=== PATIENT | female | born 1990 | race Caucasian/White ===

== ENCOUNTER 2016-12-29 13:42 | Emergency (ER) | payer BC ==
[2016-12-29 14:09] LABS: Appearance,Urine Clear (Clear); Bilirubin,Urine Negative (Negative); Glucose,Urine (UA) Negative (Negative); Ketones,Urine Negative (Negative); Leukocyte Esterase,Urine Negative (Negative); Nitrite,Urine Negative (Negative); Protein,Urine Negative (Negative); Specific Gravity,Urine 1.004 (1.001-1.035); UA Billing (MACRO vs. MICRO) CHEM; Urobilinogen,Urine <2.0 mg/dL (<2.0)
[2016-12-29] MEDS ORDERED: SODIUM CHLORIDE 0.9% 1,000 ML IV ONE (14:15)
[2016-12-29] MEDS ORDERED: ONDANSETRON 4 MG/2 ML VIAL IVP STA (14:15)
[2016-12-29] MEDS ORDERED: KETOROLAC 30 MG/ML 1 ML VIAL IVP STA (14:15)
--- NOTE | 2016-12-29 14:18 | ED ---
Abdominal Pain HPI - General Chief Complaint: Abdominal Pain Stated Complaint: Abd Pain Time Seen by Provider: 12/29/16 13:55 Source: patient, RN notes reviewed Mode of arrival: ambulatory Limitations: no limitations - History of Present Illness Initial Comments: Patient is a 26-year-old female presents to the emergency room for evaluation of abdominal pain. Patient does have a history of chronic abdominal pain for the past few years. Patient states usually she has about 6-8 bowel movements per day that are sometimes loose. Patient states over the past 2 days she has not been able to make a bowel movement. Patient states for the past 2 weeks she has been having worsening abdominal pain. Patient states a few days ago she was having bright red blood in her stools. Patient denies pain or burning during urination, trouble urinating or blood in urine. Patient states the pain makes her nauseous. Patient states she woke up today with worsening right lower quadrant and left lower quadrant pain and thought she should be evaluated. Patient denies any current blood in her stools. Patient denies chest pain or shortness of breath. Patient denies headache or dizziness. Patient denies fevers or chills. Patient denies history of abdominal surgeries. - Related Data Home Medications Medication Instructions Recorded Confirmed Dextroamphetamine/Amphetamine 20 mg PO BID 12/29/16 12/29/16 [Adderall] Triamcinolone Acetonide [Nasacort] 1 spray EA NOSTRIL BID PRN 12/29/16 12/29/16 Previous Rx's Medication Instructions Recorded Dicyclomine [Bentyl] 10 mg PO TID PRN #12 capsule 12/29/16 Allergies Allergy/AdvReac Type Severity Reaction Status Date / Time No Known Allergies Allergy Verified 12/29/16 13:49 Review of Systems ROS Statement: Those systems with pertinent positive or pertinent negative responses have been documented in the HPI. ROS Other: All systems not noted in ROS Statement are negative. Past Medical History Past Medical History: No Reported History History of Any Multi-Drug Resistant Organisms: None Reported Past Surgical History: No Surgical Hx Reported Past Psychological History: ADD/ADHD Smoking Status: Current every day smoker Past Alcohol Use History: Occasional Past Drug Use History: None Reported General Exam - General Exam Comments Initial Comments: Sitting in exam room, no acute distress. Limitations: no limitations General appearance: alert, in no apparent distress Head exam: Present: atraumatic, normocephalic, normal inspection Eye exam: Present: normal appearance ENT exam: Present: normal exam Neck exam: Present: normal inspection Respiratory exam: Present: normal lung sounds bilaterally. Absent: respiratory distress Cardiovascular Exam: Present: regular rate, normal rhythm, normal heart sounds GI/Abdominal exam: Present: soft, tenderness (RLQ/LLQ), normal bowel sounds. Absent: distended, guarding, rebound, rigid Rectal exam: Present: normal inspection, normal rectal tone, heme (-) stool Extremities exam: Present: normal inspection Back exam: Present: normal inspection Neurological exam: Present: alert, oriented X3, CN II-XII intact, normal gait Psychiatric exam: Present: normal affect, normal mood Skin exam: Present: warm, dry, intact, normal color. Absent: rash Course Vital Signs 12/29/16 13:46 Temperature 97.4 F L Pulse Rate 92 Respiratory 20 Rate Blood Pressure 141/76 O2 Sat by Pulse 99 Oximetry Medical Decision Making - Medical Decision Making Patient is a 26-year-old female presents to the emergency room for evaluation of abdominal pain. Patient states she usually has 6-8 bowel movements per day and has had decreased bowel movements over the past 2 days. Patient's symptoms consistent with possible IBS. Patient has never been diagnosed with IBS. WBC slightly elevated. Other labs show no concerning findings. Patient states she is feeling better after medications given. Patient was sent home with Antonio and advised to follow-up with GI specialist for further evaluation. Patient states she understands everything that was discussed with her. Return parameters discussed. Case discussed with Dr. Pino. - Lab Data Result diagrams: 12/29/16 14:25 12/29/16 14:25 Lab Results 12/29/16 12/29/16 12/29/16 Range/Units 13:55 13:55 14:15 WBC (3.8-10.6) k/uL RBC (3.80-5.40) m/uL Hgb (11.4-16.0) gm/dL Hct (34.0-46.0) % MCV (80.0-100.0) fL MCH (25.0-35.0) pg MCHC (31.0-37.0) g/dL RDW (11.5-15.5) % Plt Count (150-450) k/uL Neutrophils % % Lymphocytes % % Monocytes % % Eosinophils % % Basophils % % Neutrophils # (1.3-7.7) k/uL Lymphocytes # (1.0-4.8) k/uL Monocytes # (0-1.0) k/uL Eosinophils # (0-0.7) k/uL Basophils # (0-0.2) k/uL Sodium (137-145) mmol/L Potassium (3.5-5.1) mmol/L Chloride (98-107) mmol/L Carbon Dioxide (22-30) mmol/L Anion Gap mmol/L BUN (7-17) mg/dL Creatinine (0.52-1.04) mg/dL Est GFR (MDRD) Af Amer (>60 ml/min/1.73 sqM) Est GFR (MDRD) Non-Af (>60 ml/min/1.73 sqM) Glucose (74-99) mg/dL Calcium (8.4-10.2) mg/dL Total Bilirubin (0.2-1.3) mg/dL AST (14-36) U/L ALT (9-52) U/L Alkaline Phosphatase (38-126) U/L Total Protein (6.3-8.2) g/dL Albumin (3.5-5.0) g/dL Amylase (30-110) U/L Lipase (23-300) U/L Urine Color Light Yellow Urine Appearance Clear (Clear) Urine pH 7.0 (5.0-8.0) Ur Specific [place] 1.004 (1.001-1.035) Urine Protein Negative (Negative) Urine Glucose (UA) Negative (Negative) Urine Ketones Negative (Negative) Urine Blood Negative (Negative) Urine Nitrite Negative (Negative) Urine Bilirubin Negative (Negative) Urine Urobilinogen <2.0 (<2.0) mg/dL Ur Leukocyte Esterase Negative (Negative) Urine HCG, Qual Not Detected (Not Detectd) Stool Occult Blood Negative (Negative) 12/29/16 12/29/16 Range/Units 14:25 14:25 WBC 12.6 H (3.8-10.6) k/uL RBC 4.71 (3.80-5.40) m/uL Hgb 15.3 (11.4-16.0) gm/dL Hct 43.5 (34.0-46.0) % MCV 92.4 (80.0-100.0) fL MCH 32.5 (25.0-35.0) pg MCHC 35.2 (31.0-37.0) g/dL RDW 12.3 (11.5-15.5) % Plt Count 286 (150-450) k/uL Neutrophils % 70 % Lymphocytes % 18 % Monocytes % 5 % Eosinophils % 5 % Basophils % 1 % Neutrophils # 8.8 H (1.3-7.7) k/uL Lymphocytes # 2.2 (1.0-4.8) k/uL Monocytes # 0.6 (0-1.0) k/uL Eosinophils # 0.6 (0-0.7) k/uL Basophils # 0.1 (0-0.2) k/uL Sodium 141 (137-145) mmol/L Potassium 4.8 (3.5-5.1) mmol/L Chloride 103 (98-107) mmol/L Carbon Dioxide 27 (22-30) mmol/L Anion Gap 11 mmol/L BUN 13 (7-17) mg/dL Creatinine 0.65 (0.52-1.04) mg/dL Est GFR (MDRD) Af Amer >60 (>60 ml/min/1.73 sqM) Est GFR (MDRD) Non-Af >60 (>60 ml/min/1.73 sqM) Glucose 90 (74-99) mg/dL Calcium 10.0 (8.4-10.2) mg/dL Total Bilirubin 0.4 (0.2-1.3) mg/dL AST 27 (14-36) U/L ALT 32 (9-52) U/L Alkaline Phosphatase 75 (38-126) U/L Total Protein 7.6 (6.3-8.2) g/dL Albumin 4.4 (3.5-5.0) g/dL Amylase 34 (30-110) U/L Lipase 80 (23-300) U/L Urine Color Urine Appearance (Clear) Urine pH (5.0-8.0) Ur Specific [place] (1.001-1.035) Urine Protein (Negative) Urine Glucose (UA) (Negative) Urine Ketones (Negative) Urine Blood (Negative) Urine Nitrite (Negative) Urine Bilirubin (Negative) Urine Urobilinogen (<2.0) mg/dL Ur Leukocyte Esterase (Negative) Urine HCG, Qual (Not Detectd) Stool Occult Blood (Negative) - Radiology Data Radiology results: report reviewed, image reviewed Disposition Clinical Impression: Abdominal pain Disposition: HOME SELF-CARE Condition: Good Instructions: Irritable Bowel Syndrome (ED), Abdominal Pain (ED) Additional Instructions: Please follow up with GI specialist or primary care provider for further evaluation. If any new symptom arises or symptoms worsen, return to ER as soon as possible. Prescriptions: Dicyclomine [Bentyl] 10 mg PO TID PRN #12 capsule PRN Reason: Pain Referrals: Nany Ochoa DO [Primary Care Provider] - 1-2 days Sameer Toussaint MD [STAFF PHYSICIAN] - 1-2 days Time of Disposition: 15:30
[2016-12-29 14:39] LABS: Basophils # (A) 0.1 k/uL (0-0.2); Basophils % (A) 1 %; CH 31.8; CHCM 34.6; Eosinophils # (A) 0.6 k/uL (0-0.7); Eosinophils % (A) 5 %; HCT 43.5 % (34.0-46.0); HGB 15.3 gm/dL (11.4-16.0); Luc # (Auto) 0.25; Luc % (Auto) 2; Lymphocytes # (A) 2.2 k/uL (1.0-4.8); Lymphocytes % (A) 18 %; MCH 32.5 pg (25.0-35.0); MCHC 35.2 g/dL (31.0-37.0); MCV 92.4 fL (80.0-100.0); Mean Platelet Volume 7.5; Monocytes # (A) 0.6 k/uL (0-1.0); Monocytes % (A) 5 %; Neutrophils # (A) 8.8 k/uL (1.3-7.7); Neutrophils % (A) 70 %; RBC 4.71 m/uL (3.80-5.40); RDW 12.3 % (11.5-15.5); WBC 12.6 k/uL (3.8-10.6); WBC (Perox) 11.54
[2016-12-29 14:51] LABS: ALT 32 U/L (9-52); AST 27 U/L (14-36); Alkaline Phosphatase 75 U/L (38-126); Amylase 34 U/L (30-110); Anion Gap 11 mmol/L; Blood Urea Nitrogen 13 mg/dL (7-17); Carbon Dioxide 27 mmol/L (22-30); Chloride 103 mmol/L (98-107); Glucose 90 mg/dL (74-99); Non-African American GFR(MDRD) >60 (>60 ml/min/1.73 sqM); Potassium 4.8 mmol/L (3.5-5.1); Sodium 141 mmol/L (137-145); Total Bilirubin 0.4 mg/dL (0.2-1.3); Total Protein 7.6 g/dL (6.3-8.2)
--- NOTE | 2016-12-29 14:54 | XR ---
EXAMINATION TYPE: XR KUB DATE OF EXAM: 12/29/2016 2:46 PM CLINICAL HISTORY: Abdominal pain and nausea for 2 weeks. TECHNIQUE: 2 upright KUB images of the abdomen are obtained. COMPARISON: None. FINDINGS: Scattered gas is seen in non-distended small bowel loops. Gas and fecal material is seen in non-distended colon. There is no visceromegaly, pneumoperitoneum, or abnormal calcification apprecia arabella. The lung bases are clear and the osseous structures are intact. IMPRESSION: Overall nonobstructive bowel gas pattern.
[2016-12-29] MEDS ORDERED: DICYCLOMINE 10 MG CAP PO STA (15:31)
[2016-12-29 15:39] VITALS: BP 128/60; PULSE 75; RESP 16; TEMP 97.3
== END 2016-12-29 15:39 | disposition home or self-care (01) ==
LOC: EC 13:42
DX: R10.31 Right lower quadrant pain (principal); R10.32 Left lower quadrant pain; D72.829 Elevated white blood cell count, unspecified; R11.0 Nausea; F90.9 Attention-deficit hyperactivity disorder, unspecified type; F17.200 Nicotine dependence, unspecified, uncomplicated; Z79.899 Other long term (current) drug therapy
CPT/HCPCS: 99284; 96374; 96375; 96361; 36415; 80053; 82150; 83690; 85025; 82272; 81003; 81025; 87086; 74000; J2405; J1885